=== PATIENT | male | born 1965 | race Caucasian/White ===

== ENCOUNTER 2025-03-27 17:48 | Inpatient (IN) | payer OTHER, BC ==
[~2025-03-27] VITALS: Ht 177.8 cm; Wt 95.6 kg
[~2025-03-27 17:48] MED LIST: ASPI81TA52 PO; CETI-90 GT; ESCI20TA GT; HYDR25TA4 PO; LOSA50TA64 GT; MULT-1085 PO; TADA5TAB14 PO; TEST200V33 IM
--- NOTE | 2025-03-27 18:00 | Physician Documentation ---
History of Present Illness ~ Chief Complaint: Shortness of Breath Stated Complaint: SOB Time Seen by MD: 17:59 HPI Patient presents to the emergency room sent from [facility] with shortness of breath. He states that at about 4:00 p.m. this evening began having coughing fit and things just [place] to the point where he went to the facility to be seen. While at the facility was found to be saturating in the 70s and ambulance was called and gave him a breathing treatment it is beginning to feel better. He states he felt fine yesterday. He arrives with a fever. Denies nausea vomiting diarrhea or constipation. Diarrhea yesterday. No andrei manning. Had a gastric tube placed about a month and a half ago at [place]. He has a history of esophageal cancer and he elected not to have the radical surgical treatment in his considered terminal. With this I asked him his code status and he states limited code but would be okay with intubation. No compressions. Denies chest pain Medication Reconciliation Allergies: Coded Allergies: No Known Drug Allergies (Verified Allergy, Unknown, 03/27/25) Scheduled Amiodarone Hcl (Cordarone), 200 MG GT DAILY, (Reported) Apixaban (Eliquis), 1 TAB GT BID, (Reported) Cetirizine HCl (Zyrtec), 1 TAB GT DAILY, (Reported) Escitalopram Oxalate (Lexapro), 1 TAB GT DAILY, (Reported) Losartan Potassium (Losartan Potassium), 25 MG GT DAILY, (Reported) Metoprolol Tartrate (Metoprolol Tartrate), 1 TAB GT BID, (Reported) Pantoprazole Sodium (PROTONIX tablet), 1 TAB GT BID, (Reported) Sennosides/Docusate Sodium (Senna Plus 8.6-50 mg Tablet), 1 TAB GT BID, (Reported) Scheduled PRN ONDANSETRON ODT 4mg tablet (Ondansetron Odt), 1 TAB GT Q8H PRN for nausea/vomiting, (Reported) Oxycodone Hcl IR* (Oxycodone IR*), 1 TAB GT Q12H PRN PRN for pain, (Reported) Discontinued Medications Aspirin (Aspirin EC), 1 TAB PO DAILY, (Reported) Discontinued Reason: patient no longer taking Hydrochlorothiazide (Hydrochlorothiazide), 1 TAB PO QAM, (Reported) Discontinued Reason: patient no longer taking Multivitamin (Multi Vitamin Daily), 1 TAB PO DAILY, (Reported) Discontinued Reason: patient no longer taking Tadalafil (Tadalafil), 1 TAB PO DAILY, (Reported) Discontinued Reason: patient no longer taking Testosterone Cypionate (TESTOSTERONE CYPIONATE 200mg/ml 10ml vial), 1 ML IM Q2W, (Reported) Discontinued Reason: patient no longer taking Review of Systems ROS All review of systems negative except as per HPI Physical Exam Vital Signs: Temperature: 100.1, Source: Oral, Heart Rate: 117, Respiratory Ra te: 25, BP: 128/90, Pulse Oximetry: 92, Weight: 88.000 Oxygen Flow Rate: 6.0 Physical Exam General: Patient is awake, alert, oriented x4 in severe distress. Diaphoretic Head: Normocephalic and atraumatic. Eyes: Conjunctival normal. EOMI. PERRL. ENT: Mucous membranes moist. Neck: Supple, trachea is midline. Chest: Diffuse coarse rhonchi bilaterally. Tachypneic on non-rebreather Cardiac: Tachycardic regular without murmurs, gallops, or rubs. Abd: Soft, nondistended, nontender, with normoactive bowel sounds. No guarding, rebound, or rigidity. G-tube in place Progress Results/Orders Results/Orders Orders - VENKATESH ISAAC MD Cont Nebulizer Treatment (03/27/25 17:56) Albuterol 2.5mg/3ml Nebule (Proventil 2. (03/27/25 18:00) Culture Blood (03/27/25 17:56) Urinalysis, Cult If Indicated (03/27/25 17:56) Chest,Single View (03/27/25 18:28) Monitor (03/27/25 17:56) Oxygen (03/27/25 17:56) Saline Lock (03/27/25 17:56) Type And Screen (03/27/25 18:06) Cta Chest Pe (03/27/25 18:39) Covid19 Binax Poc Result Entry (03/27/25 19:58) Amiodarone/D5 360mg/200ml Bag (Nexterone (03/27/25 20:05) Norepinephrine 8mg/ 250ml Ns (Norepineph (03/27/25 20:25) High Flow O2 Daily (03/27/25 20:41) Page Hospitalist (03/28/25 00:30) Fill Out Med Reconciliation (03/28/25 00:30) Completed Orders - VENKATESH ISAAC MD Cbc/Diff (03/27/25 17:56) Chest,Single View (03/27/25 18:28) Procalcitonin (03/27/25 17:56) BMP (03/27/25 17:56) Lacticsepsis (03/27/25 17:56) Methylprednisolone Sod Succ (Solumedrol (03/27/25 18:00) PBNP (03/27/25 18:00) Normal Saline 1000ml (0.9% Sodium Chlori (03/27/25 18:00) Azithromycin/Ns 500mg/250ml (Zithromax/N (03/27/25 18:00) Ceftriaxone/B0d-Sgpuwlmj 1gm (Rocephin 1 (03/27/25 18:00) Normal Saline 1000ml (0.9% Sodium Chlori (03/27/25 18:00) Normal Saline 1000ml (0.9% Sodium Chlori (03/27/25 18:00) Acetaminophen 1,000mg/100ml Iv (Ofirmev (03/27/25 18:00) Ceftriaxone/Y4n-Xdiihmwl 1gm (Rocephin 1 (03/27/25 18:15) Cta Chest Pe (03/27/25 18:39) Electrocardiogram (03/27/25 18:51) Diltiazem Iv (Cardizem Iv 5mg/Ml Inj.) (03/27/25 19:00) Iohexol 350mg/Ml 100ml (Omnipaque 350mg/ (03/27/25 19:02) Lidocaine 5% Patch (Lidoderm 5% Patch) (03/27/25 19:55) Amiodarone 150mg/Dext, Iso-Os (Nexterone (03/27/25 20:05) Influenza Type A&B Rapid Test (03/27/25 20:09) Man Diff (03/27/25 18:02) Fentanyl/Pf (Fentanyl 0.05 Mg/Ml Syringe (03/27/25 22:55) Ketorolac Trometh 15mg/Ml Vial (Toradol (03/27/25 22:55) Metronidazole-Flagyl 500mg/Ns (Flagyl 50 (03/27/25 23:57) Medications Received in ER Medications (Trade) Dose Ordered Sig/Justine Route PRN Reason Start Time Stop Time Status Last Admin Dose Admin (Proventil 2.5 MG/3ML nebule) 5 mg Q1H PRN CONTNEB SOB or wheezing 03/27/25 18:00 03/27/25 18:02 5 MG (SoluMEDROL 125mg inj) 125 mg ONCE ONCE IV 03/27/25 18:00 03/27/25 18:02 DC 03/27/25 18:07 125 MG Sodium Chloride 1,000 ml @ 1,000 mls/hr ONCE ONCE IV 03/27/25 18:00 03/27/25 18:59 DC 03/27/25 18:11 1,000 MLS/HR Azithromycin 250 ml @ 250 mls/hr ONCE ONCE IV 03/27/25 18:00 03/27/25 18:59 DC 03/27/25 18:28 250 MLS/HR (0.9% sodium chloride (NS) 1000ml IV soln) 500 ml ONCE ONCE IVB 03/27/25 18:00 03/27/25 18:02 DC 03/27/25 19:40 500 ML (0.9% sodium chloride (NS) 1000ml IV soln) 1,000 ml ONCE ONCE IVB 03/27/25 18:00 03/27/25 18:05 DC 03/27/25 19:01 1,000 ML Acetaminophen 100 ml @ 400 mls/hr ONCE ONCE IV 03/27/25 18:00 03/27/25 18:14 DC 03/27/25 18:11 400 MLS/HR Ceftriaxone Sodium 50 ml @ 100 mls/hr ONCE ONCE IV 03/27/25 18:15 03/27/25 18:44 DC 03/27/25 18:20 100 MLS/HR (Cardizem IV 5mg/ ml inj.) 15 mg ONCE ONCE IV 03/27/25 19:00 03/27/25 19:01 DC 03/27/25 19:08 15 MG (Lidoderm 5% Patch) 1 patch ONCE ONCE TP 03/27/25 19:55 03/27/25 19:56 DC 03/27/25 19:55 1 PATCH Amiodarone HCL/ Dextrose 100 ml @ 600 mls/hr ONCE ONCE IV 03/27/25 20:05 03/27/25 20:18 DC 03/27/25 20:50 600 MLS/HR Amiodarone HCL/ Dextrose 200 ml @ 33 mls/hr Q6H4M IV 03/27/25 20:05 03/27/25 21:13 33 MLS/HR Norepinephrine Bitartrate 250 ml @ 16.5 mls/hr [id number] IV 03/27/25 20:25 03/27/25 20:29 16.5 MLS/HR (fentaNYL 0.05 MG/ML syringe) 50 mcg ONCE ONCE IV 03/27/25 22:55 03/27/25 22:56 DC 03/27/25 23:10 50 MCG (Toradol injection) 15 mg ONCE ONCE IV 03/27/25 22:55 03/27/25 22:58 DC 03/27/25 23:10 15 MG Metronidazole/ Sodium Chloride 100 ml @ 100 mls/hr ONCE STAT IV 03/27/25 23:57 03/28/25 00:56 DC 03/28/25 00:06 100 MLS/HR Vital Signs 03/27/25 03/27/25 03/27/25 03/27/25 17:54 17:58 18:01 18:03 Temp 100.1 Pulse 117 119 116 Resp B/P (MAP) 128/90 154/71 (98) Pulse Ox 88 92 92 93 O2 Delivery Non-Rebreather O2 Flow Rate 6.0 10 12.0 FiO2 N/A 03/27/25 03/27/25 03/27/25 03/27/25 18:03 18:24 18:32 18:36 Pulse 110 108 Resp B/P (MAP) 126/70 (88) 113/63 (80) Pulse Ox 93 94 O2 Flow Rate 8.0 8.0 8.0 03/27/25 03/27/25 03/27/25 03/27/25 18:52 18:57 19:08 19:19 Pulse 145 163 160 156 Resp B/P (MAP) 135/60 (85) 123/72 94/58 (70) Pulse Ox 93 94 87 O2 Flow Rate 15.0 15.0 03/27/25 03/27/25 03/27/25 03/27/25 19:26 19:32 19:47 20:08 Pulse 142 141 143 138 Resp B/P (MAP) 91/50 (64) 88/52 (64) 95/56 (69) 97/57 (70) Pulse Ox 93 92 94 89 O2 Flow Rate 15.0 15.0 15.0 15.0 03/27/25 03/27/25 03/27/25 03/27/25 20:19 20:29 20:40 20:48 Temp 98.5 Pulse 153 130 128 Resp B/P (MAP) 82/49 (60) 82/49 95/62 (73) 103/68 (80) Pulse Ox 90 90 92 O2 Flow Rate 15.0 15.0 25.0 FiO2 100 03/27/25 03/27/25 03/27/25 03/27/25 20:51 21:11 21:18 21:40 Pulse 129 130 122 114 Resp B/P (MAP) 113/71 (85) 99/69 (79) 107/59 (75) Pulse Ox 90 97 95 95 O2 Flow Rate 30.0 30.0 30.0 30.0 FiO2 100 100 100 03/27/25 03/27/25 03/27/25 03/27/25 22:46 22:52 23:10 23:10 Pulse 128 Resp 22 21 20 B/P (MAP) 113/76 (88) 112/79 Pulse Ox 94 O2 Flow Rate 30.0 FiO2 100 03/27/25 03/27/25 03/27/25 03/28/25 23:14 23:58 23:59 00:39 Pulse 125 120 Resp 24 22 B/P (MAP) 126/73 109/71 (84) 115/66 (82) Pulse Ox 97 98 O2 Flow Rate 30.0 30.0 FiO2 100 100 Laboratory Tests Test 03/27/25 18:02 03/27/25 20:11 White Blood Count 25.2 *H Red Blood Count 4.16 L Hemoglobin 11.9 L Hematocrit 36.1 L Mean Corpuscular Volume 86.7 Mean Corpuscular Hemoglobin 28.6 Mean Corpuscular Hemoglobin Concent 33.0 Red Cell Distribution Width 17.0 H Platelet Count 510 H Mean Platelet Volume 7.1 L Neutrophils (%) (Auto) 93.4 H Lymphocytes (%) (Auto) 2.4 L Monocytes (%) (Auto) 3.5 Eosinophils (%) (Auto) 0 Basophils (%) (Auto) 0.7 Neutrophils # (Auto) 23.5 H Lymphocytes # (Auto) 0.6 L Monocytes # (Auto) 0.9 Eosinophils # (Auto) 0.0 Basophils # (Auto) 0.2 CBC Comment Differential Total Cells Counted 100 Neutrophils % (Manual) 94.0 H Band Neutrophils % 2.0 Lymphocytes % (Manual) 2.0 L Monocytes % (Manual) 2.0 Platelet Estimate Normal Red Blood Cell Morphology Perf Basophilic Stippling Anisocytosis 2+ Sodium Level 138 Potassium Level 4.2 Chloride Level 100 Carbon Dioxide Level 31.4 Anion Gap 7 L Blood Urea Nitrogen 19 H Creatinine 0.71 Estimated GFR/1.73 m2 > 90 BUN/Creatinine Ratio 26.8 H Glucose Level 132 H Lactic Acid Level 1.5 Calcium Level 8.8 Pro-B-Type Natriuretic Peptide 307 H Albumin 2.3 L Procalcitonin < 0.05 Chemistry Comments Influenza Type A Antigen Negative Influenza Type B Antigen Negative SARS-CoV-2 Antigen (Rapid) Negative Microbiology Date/Time Source Procedure Growth Status 03/27/25 18:13 Blood Iv Start Blood Culture - Preliminary NEGATIVE (LESS THAN 24 HOURS) Resulted EKG/XRAY/CT/US/VASC/MRI EKG : Additional Comment EKG interpreted by myself shows time of 1854, rate 149, AFib RVR, borderline left axis deviation, nonspecific ST-T changes Chest X-Ray : Additional Comments Exam: CHEST,SINGLE VIEW CHEST RADIOGRAPH REASON FOR EXAM: RESPIRATORY DISTRESS COMPARISON: None TECHNIQUE: One view of the chest is provided FINDINGS: Evaluation is degraded by patient rotation. The cardiomediastinal silhouette is within normal limits for size. There is a right chest port with the catheter tip projecting over the area of the cavoatrial junction. There is right basilar airspace disease. There is no significant pleural effusion. There is no pneumothorax. Old healed fracture of the left 8th rib. IMPRESSION: Right basilar airspace disease concerning for pneumonia. Correlate clinically with physical exam. Medical Decision Making Additional information obtaine: N/A Findings Patient presents to the emergency room for evaluation of shortness of breath and severe respiratory distress. Differentials include but are not limited to pneumonia, ACS, pulmonary embolism, CHF therefore emergent labs and imaging indicated. Workup consistent with pneumonia and IV antibiotics and 30 milliliters/kilogram of IV fluids ordered. Patient hypotensive requiring Levophed. Also noted to have AFib RVR and he had not tolerate diltiazem therefore amiodarone drip initiated. Blood pressure improved and we are able to wean him off of Levophed. Heart Score: 3 Differential Dx:Considerations: Include: anxiety, asthma, bronchitis, cardiogenic shock, CHF, COPD, dysrhythmia, hypertension, accelerated, hypertension, essential, hypertension, malignant, hyperventilation, hyponatremia, myocardial infarction, panic attack, pneumonia, pneumonitis, pneumothorax, PSVT, pulmonary embolism, respiratory distress, respiratory failure, sinusitis, upper resp. infection, other Departure Admitted to Inpatient Unit: yes, to hospitalist Impression: Primary Impression: Pneumonia Additional Impressions: Hypoxia Atrial fibrillation with RVR Referrals: NO PRIMARY CARE PROVIDER (PCP) Critical Care Note Total Time (mins): 45 Critical Care Note The very real possibility of a deterioration of this patient's condition required the highest level of my preparedness for sudden, emergent intervention. I provided critical care services, which included medication orders, frequent reevaluations of the patient's condition and response to treatment, ordering and reviewing test results, and discussing the case with various consultants. Excludes time spent performing separately billable procedures. The critical care time associated with the care of the patient was 45 minutes not counting procedures Signature Scribe Signature: No scribe Attestation: The note accurately reflects work and decisions made by me.Venkatesh Isaac MD 03/28/25 01:18 VENKATESH ISAAC MD Mar 27, 2025 18:00
[2025-03-27] MEDS: albuterol 2.5 MG/3 ML nebule CONTNEB PRN (18:02)
[2025-03-27 18:03] VITALS: PULSE 116; RESP 28; O2SAT 93
[2025-03-27] MEDS: acetaminophen 1,000mg/100ml IV 100 ML IV ONE (18:11)
[2025-03-27] MEDS: normal saline 1000ml 1,000 ML IV ONE (18:11)
[2025-03-27] MEDS: CefTRIAXone/D5W-Rocephin 1gm 50 ML IV ONE ×2 (18:12→18:20)
[2025-03-27 18:13] LABS: MEAN PLATELET VOLUME 7.1 FL (7.4-10.4); RED CELL DISTRIBUTION WIDTH 17.0 % (11.5-14.5)
[2025-03-27] MEDS: azithromycin/NS 500mg/250ml 250 ML IV ONE (18:28)
[2025-03-27 18:33] LABS: CREATININE 0.71 MG/DL (0.60-1.10); PRO BRAIN NATRIURETIC PEPTIDE 307 PG/ML (0-125); TOTAL CARBON DIOXIDE 31.4 MMOL/L (24-32); eCRCL 116 ML/MIN; eGFR > 90 ML/MIN
--- NOTE | 2025-03-27 18:41 | RADIOLOGY REPORT ---
CHEST RADIOGRAPH REASON FOR EXAM: RESPIRATORY DISTRESS COMPARISON: None TECHNIQUE: One view of the chest is provided FINDINGS: Evaluation is degraded by patient rotation. The cardiomediastinal silhouette is within normal limits for size. There is a right chest port with the catheter tip projecting over the area of the cavoatrial junction. There is right basilar airspace disease. There is no significant pleural effusion. There is no pneumothorax. Old healed fracture of the left 8th rib. IMPRESSION: Right basilar airspace disease concerning for pneumonia. Correlate clinically with physical exam.
[2025-03-27 18:52] VITALS: PULSE 145; RESP 24; O2SAT 93
--- NOTE | 2025-03-27 18:58 | ELECTROCARDIOGRAPH REPORT ---
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
[2025-03-27] MEDS: normal saline 1000ML IV soln IVB ONE ×2 (19:01→19:40)
[2025-03-27] MEDS: diltiazem 5mg/ml 5ml inj. IV ONE (19:08)
[2025-03-27] MEDS ORDERED: PANT-47 GT (19:44)
[2025-03-27] MEDS ORDERED: ONDA-243 GT (19:44)
[2025-03-27] MEDS ORDERED: AMIO200T76 GT (19:44)
[2025-03-27] MEDS ORDERED: SENN-302 GT (19:44)
[2025-03-27] MEDS ORDERED: METO25TA6 GT (19:44)
[2025-03-27] MEDS ORDERED: APIX5TAB3 GT (19:44)
[2025-03-27] MEDS ORDERED: OXYC-658 GT (19:44)
[2025-03-27] MEDS: NORepinephrine 8mg/ 250ml NS 250 ML IV SCH (20:29)
[2025-03-27 20:35] LABS: INFLUENZA TYPE A ANTIGEN RAPID NEGATIVE (Negative); INFLUENZA TYPE B ANTIGEN RAPID NEGATIVE (Negative)
[2025-03-27 20:43] LABS: BANDS% (MANUAL) 2.0 % (0-10); LYMPHOCYTES % (MANUAL) 2.0 % (21-51); MONOCYTES % (MANUAL) 2.0 % (2-12); NEUTROPHILS % (MANUAL) 94.0 % (42-75)
[2025-03-27 20:44] LABS: PLATELET ESTIMATE NORMAL
[2025-03-27] MEDS: amiodarone 150mg/dext, iso-os 100 ML IV ONE (20:50)
[2025-03-27 20:51] VITALS: PULSE 129; RESP 24; O2SAT 90
[2025-03-27] MEDS: amiodarone/D5 360MG/200ML BAG 200 ML IV SCH (21:13)
--- NOTE | 2025-03-27 23:02 | RADIOLOGY REPORT ---
CTA Chest with intravenous contrast INDICATION: sob COMPARISON: Same day chest radiograph TECHNIQUE: Multidetector spiral CTA of the chest was performed of the chest with intravenous contrast. PULMONARY ANGIOGRAPHY PROTOCOL was utilized using a bolus- tracking technique centered on the main pulmonary artery. Axial, coronal and sagittal multiplanar and MIP reformats were performed. Radiation Dose : 1. Chest: CTDI volume is 24 mGy. Dose-length product is 1067 mGy*cm The dose indicators for CT are the volume Computed Tomography (CT) Dose Index (CTDIvol) and the Dose Length Product (DLP), and are measured in units of mGy and mGy-cm, respectively. These indicators are not patient dose, but values generated from the CT scanner acquisition factors. The report includes radiation exposure data for exposures received during this examination. Findings: Pulmonary arteries: Technical factors adequate for assessment of the level of the mid sacrum segmental arteries. No visualized filling defect. Central arteries are normal in caliber. Lower neck: Right IJ chest port terminating in the mid SVC. Lungs: Dense consolidation the right lower lobe, lesser within the right middle lobe, with additional nodular and ground-glass foci in the right upper greater than left upper and lower lobes. Significant, near complete obstruction of right airways with debris. Right apical greater than bilateral basilar interlobular septal thickening. Pleura: Trace right pleural effusion. Mediastinum: Normal heart size. No pericardial effusion. Dilated proximal esophagus with circumferential irregular wall thickening of the mid to distal segment with prominent debris. Lymph Nodes: Bilateral hilar adenopathy suspected. Musculoskeletal: No acute osseous abnormality. Soft tissues: Unremarkable. Upper abdomen: No acute abnormality. Left renal cysts. IMPRESSION: 1. No pulmonary embolism to the level of the mid subsegmental arteries. 2. Multifocal airspace disease involving all lobes, worse in the tmwyx-yquoavu-xsey-left lobe. Extensive right lung aspiration is present. Trace right pleural effusion. Aspiration and superimposed infection are likely. Consider bronchoscopy. 3. Irregular masslike wall thickening of the mid to distal esophagus with large volume of intraluminal debris. Consider endoscopy. 4. Bilateral hilar lymph nodes may be reactive or metastatic, correlate with procedure results.
[2025-03-27] MEDS: fentaNYL/PF 50MCG/1 ML 2ML syringe IV ONE (23:10)
[2025-03-27] MEDS: ketorolac trometh 15mg/ml vial 15 MG/ML ML IV ONE (23:10)
[2025-03-28] VITALS (21 sets, daily range): BP systolic 90–114; BP diastolic 67–82; PULSE 67–124; RESP 14–26; TEMP 97.2–97.5; O2SAT 90–100
[2025-03-28] MEDS: metroNIDAZOLE-Flagyl 500mg/NS 100 ML IV STA (00:06)
[2025-03-28] MEDS ORDERED: magnesium sulf-water 2g/50mL 50 ML IV PRN (00:40)
[2025-03-28] MEDS ORDERED: magnesium sulf-water 4G/100mL 100 ML IV PRN (00:40)
[2025-03-28] MEDS ORDERED: magnesium hydroxide 30ml (MOM) UD suspension PO PRN (00:40)
[2025-03-28] MEDS ORDERED: potassium Cl 20 mEq SR tablet PO PRN ×2 (00:40)
[2025-03-28] MEDS ORDERED: magnesium Cl slow-release 64mg tablet PO PRN (00:40)
[2025-03-28] MEDS ORDERED: albuterol 2.5 MG/3 ML nebule NEB PRN (00:40)
[2025-03-28] MEDS ORDERED: mag hydrox/Alum hydrox/simeth 30ml oral suspension PO PRN (00:40)
[2025-03-28] MEDS ORDERED: HYDROmorphone/PF 0.2 MG/ML SYRINGE IV PRN ×2 (00:40→13:35)
[2025-03-28] MEDS ORDERED: potassium Cl 40MEQ/1/2NS 520ml 520 ML IV PRN (00:40)
[2025-03-28] MEDS ORDERED: bisacodyl 10mg suppository rectal RC PRN (00:40)
[2025-03-28 01:34] LABS: APTT 31 SECONDS (22-32); INR 1.4 INR
[2025-03-28 01:42] LABS: ABG BASE EXCESS 0.8 mmol/L (-2.0-3.0); ABG HCO3 24.7 mmol/L (21.0-28.0); ABG OXYGEN SATURATION 98.6 % (94.0-98.0); ABG PCO2 (T) 36.8 mmHg (35.0-48.0); ABG PH (T) 7.443 (7.350-7.450); ABG PO2 (T) 107.3 mmHg (83.0-108.0); ALLEN'S TEST POSITIVE; FCOHb 0.5 % (0.5-1.5); FHHb 1.4 % (0.0-5.0); FIO2 100.0 mmHg/%; FLOW 30 L/min; FMetHb 0.0 % (0.0-1.5); FO2Hb 98.1 % (94.0-98.0); MODE HIGH FLOW; PATIENT TEMPERATURE 36.9; TOTAL HEMOGLOBIN 12.2 G/dl (13.5-17.5)
--- NOTE | 2025-03-28 01:42 | HISTORY AND PHYSICAL-Residence ---
History & Physical Providers to CC Resident Creating Document: JARED LOYOLA, RES ~ History of Present Illness Reason for Admit\Complaint: Aspiration pneumonia, shortness of breath History of Present Illness This is a 59-year-old male with a history of stage IV esophageal cancer s/p G- tube placement, hypertension, atrial fibrillation, obstructive sleep apnea was brought to the ER by EMS with a chief complaint of cough with hemoptysis since 4:00 p.m. yesterday. Patient states that his cough that started spontaneously and lasted for 1 hour after which he had two mouthfulls of bright red blood and shortness of breath. Patient endorses that he can not swallow anything due to the esophageal cancer and has a complete obstruction in the esophagus. He usually takes his feeds through G-tube. The patient endorses having thick mucus every morning in his throat and states that he might have aspirated some of the mucus multiple times. Patient also wears a BiPAP at night for obstructive sleep apnea management and has copious mucus secretions every morning when he wakes up. He also states that his esophageal cancer is compressing his right atrium that causes persistent AFib despite being on medications. He takes Eliquis 5 mg b.i.d. for anticoagulation. He does not use any oxygen at home. He takes about four cartons of G-tube feeds every day. Each carton is 250 mL. He also flushes 100 mL of free water every 4 hours through the G-tube but feels almost dehydrated all the time. He drinks small sips of water which he sometimes aspirates. Patient follows [facility] and finished eight cycles of chemotherapy and 28 cycles of concomitant radiation over a period of two months. He was under remission for three months after which the cancer recurred. Britni is his PA and Dr. Emma Ruiz is his director of individual giving. Patient was offered palliative esophageal resection surgery but he declined it. Patient is in the process of pursuing hospice and endorses that hospice is ready for him to whenever he wants to opt for hospice. Patient has a advance directive which states DNR. Patient has a PET scan coming up in two weeks. ED course: His cough was associated with severe diaphoresis, nausea and his saturations were dropping to 70s and he was placed on high-flow oxygen through nasal cannula in the ER. Allergies: Coded Allergies: No Known Drug Allergies (Verified Allergy, Unknown, 03/27/25) Home Medications Home Medications Active Reported Cordarone (Amiodarone HCl) 200 Mg Tablet 200 Mg GT DAILY Senna Plus 8.6-50 mg Tablet (Sennosides/Docusate Sodium) 8.6 Mg-50 Mg Tablet 1 Tab GT BID 20 Days PROTONIX tablet (Pantoprazole Sodium) 40 Mg Tablet.dr 1 Tab GT BID 30 Days Oxycodone IR* (Oxycodone HCl) 5 Mg Tablet 1 Tab GT Q12H PRN PRN 5 Days Ondansetron Odt (Ondansetron HCl) 4 Mg Tab.rapdis 1 Tab GT Q8H PRN 4 Days Metoprolol Tartrate 25 Mg Tablet 1 Tab GT BID 30 Days Eliquis (Apixaban) 5 Mg Tablet 1 Tab GT BID 30 Days Lexapro (Escitalopram Oxalate) 20 Mg Tablet 1 Tab GT DAILY 30 Days Zyrtec (Cetirizine HCl) 10 Mg Tablet 1 Tab GT DAILY 30 Days Losartan Potassium 50 Mg Tablet 25 Mg GT DAILY Past Medical History Past Medical History stage IV esophageal cancer s/p G-tube placement, hypertension, atrial fibrillation, obstructive sleep apnea Past Surgical History Surgical History Comment Appendicectomy, nasal surgery, orthopedic surgeries Family history: Prostate cancer in father and ovarian/cervical cancer in mother Past Social History Social History Comment Smoked about 1-2 cigarettes per day for 10 years, occasional social drinking, no drug use ROS ROS Constitutional: Nausea, diaphoresis present. No fever, chills, dizziness, weakness, weight gain or loss Eyes: No pain, erythema, discharge, blurring of vision ENT: No sore throat, epistaxis, tinnitus, but copious mucus secretion Cardiovascular: Positive for palpitations, no syncope, lower extremity edema, paroxysmal nocturnal dyspnea Respiratory: hemoptysis, cough Gastrointestinal: Normal appetite. No vomiting, diarrhea, constipation, hematemesis, abdominal pain, bloating, melena or fresh blood Genitourinary: No frequency, urgency, nocturia, hematuria or dysuria Musculoskeletal: No arthralgias or myalgias Integumentary: No change in skin, hair, nails. No swelling, bruising, abrasions Neurologic: No headache, neck pain, numbness or tingling of the extremities, weakness Psychiatric: No delusions, depression, loss of interest in normal activity or change in sleep pattern, hallucinations, suicidal ideations Endocrine: No fatigue, weakness, polydipsia, polyuria, change in appetite, heat or cold intolerance, sweating, dry skin Hematological: No bleeding, petechiae, bruising Allergies: No asthma or urticaria Exam Vitals: Vital Signs Date Time Temp Pulse Resp B/P (MAP) Pulse Ox O2 Delivery O2 Flow Rate FiO2 03/28/25 00:39 120 22 115/66 (82) 98 30.0 100 03/27/25 20:48 98.5 03/27/25 17:58 Non-Rebreather General: General: Awake and Alert, oriented no acute distress. G-tube in place HEENT: Conjunctiva pink, Sclera clear, Mucus Membranes dry Neck: Supple without masses and tenderness. Resp: Decreased breath sounds bilaterally, crepitations right greater than left, no wheezing Heart: irregular rate and rhythm, normal S1 and S2, no rub, murmur or gallop, muffled heart sounds. Abdomen: Soft and non tender no organomegaly. Normal bowel sounds x4 quadrant normoactive. No guarding or rigidity. Extremities: Normal ROM, no swelling, nontender. No cyanosis,clubbing,1+ edema. DRAWER UPFITTER: No gross motor or sensory abnormalities. Skin: Warm and Dry. Diagnostic Data Last Recorded Lab Results: 03/27/25180103/27/251801 Diagnostic Data: Laboratory Tests Test 03/28/25 00:55 Prothrombin Time 13.5 SECONDS (9.0-12.0) H INR International Normalized Ratio 1.4 INR Activated Partial Thromboplast Time 31 SECONDS (22-32) Coagulation Comments Advance Care Planning Advanced Care plannin - 30 Minutes (I spent a total of 17 minutes on reviewing various resuscitative measures/ ACP with the patient at the time of admission. The patient has decided on a DNR code status) Additional Plan Acute hypoxemic respiratory failure secondary to aspiration pneumonia 2/2 mucus plugs Septic shock secondary to aspiration pneumonia, present on admission Leukocytosis, Reactive thrombocytosis WBC count 25.2, temperature 100.1 at admission. Patient had initial blood pressure in 80s and respiratory rate in the 30s and pulse in 140s and 150s Patient was initially given Levophed and 2.5 L bolus of IV fluids. Levophed was later discontinued after blood pressures improved. Patient also received one dose of IV fentanyl 50 mcg, ketorolac 15 mg, lidocaine patch, one dose of ceftriaxone, metronidazole and azithromycin in the ED. Currently on IV vancomycin daily, Zosyn Q 8 hours. Currently on maintenance fluids NS at the rate of 100 mL/hour. Patient was initially on 30 L high-flow oxygen nasal cannula which is now weaned off to 15 L high-flow through nasal cannula. Patient received Solu-Medrol 125 mg IV once followed by Solu-Medrol 40 mg q.6 hours scheduled. UA is pending. Lactic acid and procalcitonin are within normal limits. Follow up with blood cultures and urine cultures, CRP. Chest x-ray showed Right basilar airspace disease concerning for pneumonia. CTA abdomen ruled out PE but showed Multifocal airspace disease involving all lobes, worse in the jfmur-btfnucq-qrqd-left lobe. Extensive right lung aspiration is present. Trace right pleural effusion. Aspiration and superimposed infection are likely. Consider bronchoscopy. Consult node js developer in the a.m. for possible bronchoscopy to relieve mucus plugs. Continue aspiration precautions and incentive spirometry. Patient is currently on breathing treatments with albuterol q.2h p.r.n. and DuoNebs q.4 PRN. Atrial fibrillation with RVR Patient initially received 15 mg IV push of Cardizem that was later discontinued due to hypotension. Patient is currently on amiodarone drip. Heart rate is still in the high 110s despite being on amiodarone drip. Consult Cardiology in the a.m. patient is currently on Eliquis 5 mg b.i.d. for anticoagulation. Follow up with the echocardiogram Stage IV esophageal cancer CT shows Irregular masslike wall thickening of the mid to distal esophagus with large volume of intraluminal debris. Consider endoscopy. Bilateral hilar lymph nodes may be reactive or metastatic. Normocytic normochromic anemia Anemia of chronic disease secondary to malignancy Hemoglobin 11.9. Continue monitoring. Follow up with iron studies and supplement iron as needed. No signs of GI bleed Moderate protein calorie malnutrition. Albumin 2.3. Consult nutrition for G-tube feeds Code Status: DNR DVT Prophylaxis: Lovenox Analgesia/Sedation: [place], morphine p.r.n. Lines/Tubes: PIV Gi Prophylaxis: Protonix Nutrition: G-tube feeds per nutrition recommendation PT: Yes Prognosis: Guarded Disposition: Admit to PCU with telemetry monitoring Jared Nogueira MD Internal Medicine Resident PGY-2 Patient was assessed and case discussed with resident. I agree with the H&P and assessment and plan as above, with no change. Britney Disla MD Critical Care Date of Service: Mar 28, 2025 Billing Provider: BRITNEY DISLA MD, DEEPIKA BANDI, RES Mar 28, 2025 01:42 BRITNEY DISLA MD Mar 29, 2025 18:58
[2025-03-28] MEDS: normal saline 1000ml 1,000 ML IV ONE (02:01)
[2025-03-28] MEDS: normal saline 1000ml 1,000 ML IV SCH (02:01)
[2025-03-28] MEDS: methylPREDNISolone sod succ/PF 40mg inj. IV SCH ×2 (02:02→17:12)
[2025-03-28] MEDS: piperacillin/tazo 3.375gm/50 ML IV ONE (02:02)
[2025-03-28] MEDS: ipratropium/albuterol 3ml nebule NEB PRN (02:29)
[2025-03-28] MEDS: vancomycin/NS 1 GM ADD-VANTAGE 250 ML X 1 DOSE IV SCH (02:35)
[2025-03-28] MEDS ORDERED: mag hydrox/Alum hydrox/simeth 30ml oral suspension GT PRN (03:18)
[2025-03-28] MEDS ORDERED: magnesium hydroxide 30ml (MOM) UD suspension GT PRN (03:18)
[2025-03-28] MEDS ORDERED: acetaminophen 325mg/10.15ml oral unit dose solution GT PRN ×2 (03:20)
[2025-03-28] MEDS ORDERED: acetaminophen 325mg/10.15ml oral unit dose solution PO PRN (03:20)
[2025-03-28] MEDS: piperacillin/tazo 3.375gm/50ml 50 ML IV SCH (05:25)
[2025-03-28] MEDS: piperacillin/tazo 3.375gm/50ml 50 ML IV ONE (06:03)
[2025-03-28 07:50] LABS: % IRON SATURATION 9 % (11-46)
[2025-03-28] MEDS: K and/or MAG REPLACEMENT MC SCH (08:00)
[2025-03-28] MEDS: docusate sodium 100mg/10ml UD cup GT SCH (08:05)
[2025-03-28] MEDS: enoxaparin 40mg/0.4ml syringe SUBCUT SCH (08:06)
[2025-03-28] MEDS: vancomycin/NS 1 GM ADD-VANTAGE 250 ML IV SCH (11:25)
[2025-03-28] MEDS: HYDROmorphone inj. 0.5 MG/0.5 ML DISP.SYRIN IV PRN ×2 (12:16→21:13)
[2025-03-28] MEDS ORDERED: POTASSIUM CHLORIDE 20 MEQ/15 ML oral solution GT PRN ×2 (16:10→16:11)
[2025-03-28 20:30] LABS: MEAN PLATELET VOLUME 7.8 FL (7.4-10.4); RED CELL DISTRIBUTION WIDTH 17.0 % (11.5-14.5)
[2025-03-28 20:48] LABS: CREATININE 0.61 MG/DL (0.60-1.10); TOTAL CARBON DIOXIDE 28.3 MMOL/L (24-32); eCRCL 135 ML/MIN; eGFR > 90 ML/MIN
[2025-03-29] VITALS (22 sets, daily range): BP systolic 91–124; BP diastolic 66–84; PULSE 60–136; RESP 12–30; TEMP 96.9–98.8; O2SAT 92–99
[2025-03-29] MEDS: insulin regular, human U-100 10ml vial - multi-dose SQ SCH (02:00)
[2025-03-29] MEDS ORDERED: insulin regular, human U-100 10ml vial - multi-dose SQ SCH (02:00)
[2025-03-29] MEDS: VANCOMYCIN LEVEL IV ONE (02:30)
[2025-03-29 04:25] LABS: MEAN PLATELET VOLUME 7.2 FL (7.4-10.4); RED CELL DISTRIBUTION WIDTH 16.6 % (11.5-14.5)
[2025-03-29 04:46] LABS: CREATININE 0.63 MG/DL (0.60-1.10); TOTAL CARBON DIOXIDE 28.6 MMOL/L (24-32); eCRCL 130 ML/MIN; eGFR > 90 ML/MIN
[2025-03-29] MEDS: albuterol 2.5 MG/3 ML nebule NEB PRN (07:49)
--- NOTE | 2025-03-29 10:13 | PROGRESS NOTE- Residence ---
Progress Note - Resident Providers to CC Resident Creating Document: ANA PATTERSON RES ~ Antibiotic Timeout Antibiotic Ordered?: Yes Subjective Patient is seen in PCU, still requiring high-flow oxygen. We will repeat ABG and continue respiratory therapy for aspiration pneumonia Objective Vital Signs Date Time Temp Pulse Resp B/P (MAP) Pulse Ox O2 Delivery O2 Flow Rate FiO2 03/29/25 07:52 101 20 93 25.0 50 03/29/25 07:50 High Flow Nasal Cannula 03/29/25 06:00 97.6 109/73 (85) Result Diagram: 03/29/2541903/29/25419 General: Awake and Alert, oriented no acute distress. G-tube in place HEENT: Conjunctiva pink, Sclera clear, Mucus Membranes dry Neck: Supple without masses and tenderness. Resp: no wheezing Heart: irregular rate and rhythm, normal S1 and S2, no rub, murmur or gallop, muffled heart sounds. Abdomen: Soft and non tender no organomegaly. Normal bowel sounds x4 quadrant normoactive. No guarding or rigidity. Extremities: Normal ROM, no swelling, nontender. No cyanosis,clubbing,1+ edema. 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 Skin: Warm and Dry. Coagulation Studies Laboratory Tests Test 03/28/25 00:55 Prothrombin Time 13.5 SECONDS (9.0-12.0) H INR International Normalized Ratio 1.4 INR Activated Partial Thromboplast Time 31 SECONDS (22-32) Coagulation Comments Plan Plan Acute hypoxemic respiratory failure secondary to aspiration pneumonia 2/2 mucus plugs Septic shock secondary to aspiration pneumonia Leukocytosis, Reactive thrombocytosis WBC count 25.2, temperature 100.1 at admission. Patient had initial blood pressure in 80s and respiratory rate in the 30s and pulse in 140s and 150s Patient was initially given Levophed and 2.5 L bolus of IV fluids. Levophed was later discontinued after blood pressures improved. Patient also received one dose of IV fentanyl 50 mcg, ketorolac 15 mg, lidocaine patch, one dose of ceftriaxone, metronidazole and azithromycin in the ED. Currently on IV vancomycin daily, Zosyn Q 8 hours. Currently on maintenance fluids NS at the rate of 100 mL/hour. Patient was initially on 30 L high-flow oxygen nasal cannula which is now weaned off to 15 L high-flow through nasal cannula. Patient received Solu-Medrol 125 mg IV once followed by Solu-Medrol 40 mg q.6 hours scheduled. UA is pending. Lactic acid and procalcitonin are within normal limits. Follow up with blood cultures and urine cultures, CRP. Chest x-ray showed Right basilar airspace disease concerning for pneumonia. CTA abdomen ruled out PE but showed Multifocal airspace disease involving all lobes, worse in the ucjtd-cqjiiyu-vibm-left lobe. Extensive right lung aspiration is present. Trace right pleural effusion. Aspiration and superimposed infection are likely. Consider bronchoscopy. Consult scratcher tender in the a.m. for possible bronchoscopy to relieve mucus plugs. Continue aspiration precautions and incentive spirometry. Patient is currently on breathing treatments with albuterol q.2h p.r.n. and DuoNebs q.4 PRN. 03/29- Patient's WBC count trending down Thrombocytosis resolved Patient still having tachycardia, blood pressure improving Patient currently requiring 25 L high-flow oxygen through nasal cannula Patient on maintenance fluids NS 50 cc/hour Patient on Solu-Medrol 40 mg, albuterol p.r.n. Currently on vancomycin, Zosyn discontinued, awaiting blood cultures. Atrial fibrillation with RVR Patient initially received 15 mg IV push of Cardizem that was later discontinued due to hypotension. Patient is currently on amiodarone drip. Heart rate is still in the high 110s despite being on amiodarone drip. Consult Cardiology in the a.m. patient is currently on Eliquis 5 mg b.i.d. for anticoagulation. Follow up with the echocardiogram 03/29- Patient currently in AFib with RVR. Patient is still tachycardic Patient currently on amiodarone drip Patient on telemetry, we will continue to monitor him. Stage IV esophageal cancer CT shows Irregular masslike wall thickening of the mid to distal esophagus with large volume of intraluminal debris. Consider endoscopy. Bilateral hilar lymph nodes may be reactive or metastatic. 03/29- Patient has not seen any oncology doctor in over 3 months. To follow up with Oncology outpatient. Normocytic normochromic anemia Anemia of chronic disease secondary to malignancy Hemoglobin 11.9. Continue monitoring. Follow up with iron studies and supplement iron as needed. No signs of GI bleed 03/29- Hemoglobin decreased to 11.1. Likely due to hemodilution Iron study showed decreased iron of 11, MCV 87.3, ferritin 356, TIBC 122 with% saturation of 9 We will continue to monitor his hemoglobin level. Moderate protein calorie malnutrition. Albumin 2.3. Consult nutrition for G-tube feeds Code Status: DNR DVT Prophylaxis: Lovenox Analgesia/Sedation: [place], morphine p.r.n. Lines/Tubes: PIV Gi Prophylaxis: Protonix Nutrition: G-tube feeds per nutrition recommendation PT: Yes Prognosis: Guarded DISPOSITION- patient is improving. We will continue to monitor him. Ana Patterson PGY-1 Date of Service: Mar 29, 2025 Billing Provider: NITHYA HOLGUIN MD Common Visit Codes: [id number] INP/OBS CARE(HIGH) ANA PATTERSON, RES Mar 29, 2025 10:13 NITHYA HOLGUIN MD Mar 29, 2025 21:07
[2025-03-29] MEDS ORDERED: amiodarone/D5 360MG/200ML BAG 200 ML IV SCH (11:35)
--- NOTE | 2025-03-29 11:35 | ELECTROCARDIOGRAPH REPORT ---
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 LOVELY Butler Measurements Intervals [place] Rate: 126 P: 0 MS: 0 QRS: -24 QRSD: 87 T: 111 QT: 342 QTc: 496 Interpretive Statements Atrial fibrillation Ventricular premature complex Borderline left axis deviation Borderline low voltage, extremity leads Nonspecific T abnormalities, lateral leads Prolonged QT interval Baseline wander in lead(s) V3 Electronically Signed On 03-29-2025 18:20:[address] LOVELY Butler Please click the below link to view image of tracing.
[2025-03-29] MEDS ORDERED: amiodarone/D5 450MG/250ML BAG 250 ML IV SCH (11:58)
[2025-03-29] MEDS: amiodarone/D5 450MG/250ML BAG 250 ML IV SCH (12:46)
[2025-03-29] MEDS: HYDROcodone/acetaminophen 10/325mg tab PO PRN (14:23)
[2025-03-29] MEDS ORDERED: amiodarone inj. 450 MG in dextrose 5%-water 241 ML IV SCH (16:19)
[2025-03-29 18:18] LABS: LEUKOCYTE ESTERASE ,URINE NEGATIVE (Neg); NITRITES, URINE NEGATIVE (Neg); OCCULT BLOOD,URINE NEGATIVE (Neg)
[2025-03-29 18:20] LABS: UA COLLECTION TYPE NON-SPECIFIED
[2025-03-29 18:25] LABS: MUCUS STRANDS MODERATE /LPF (Neg); SQUAMOUS EPITHELIAL CELL,UR FEW /LPF (FEW)
[2025-03-29 18:26] LABS: AMORPHOUS URATES 1+
[2025-03-29 18:36] LABS: URINE AMPHETAMINE SCREEN NEGATIVE (Neg); URINE BARBITUATE SCREEN NEGATIVE (Neg); URINE BENZODIAZEPINES SCREEN NEGATIVE (Neg); URINE CANNABINOID SCREEN POSITIVE (Neg); URINE COCAINE SCREEN NEGATIVE (Neg); URINE METHADONE SCREEN NEGATIVE (Neg); URINE OPIATE SCREEN POSITIVE (Neg); URINE PHENCYCLIDINE SCREEN NEGATIVE (Neg)
[2025-03-29] MEDS: methylPREDNISolone sod succ/PF 40mg inj. IV SCH (19:48)
[2025-03-30] VITALS (20 sets, daily range): BP systolic 119–136; BP diastolic 65–80; PULSE 58–71; RESP 10–20; TEMP 97.2–97.7; O2SAT 93–97
[2025-03-30] MEDS: amiodarone inj. 450 MG in dextrose 5%-water 241 ML IV SCH (02:22)
[2025-03-30 07:27] LABS: MEAN PLATELET VOLUME 7.6 FL (7.4-10.4); RED CELL DISTRIBUTION WIDTH 16.8 % (11.5-14.5)
[2025-03-30 07:57] LABS: CREATININE 0.59 MG/DL (0.60-1.10); TOTAL CARBON DIOXIDE 29.8 MMOL/L (24-32); eCRCL 139 ML/MIN; eGFR > 90 ML/MIN
[2025-03-30] MEDS: HYDROcodone/acetaminophen 5mg/325mg tablet PO PRN (08:19)
[2025-03-30] MEDS: pantoprazole 40mg Tablet.DR PO SCH (08:21)
[2025-03-30] MEDS: piperacillin/tazo 3.375gm/50ml 50 ML IV SCH (10:46)
[2025-03-30] MEDS: ondansetron/PF 4mg/2ml inj IV PRN (15:11)
--- NOTE | 2025-03-30 19:02 | PROGRESS NOTE- Residence ---
Progress Note - Resident Providers to CC Resident Creating Document: DEEDEE HICKMAN RES ~ Antibiotic Timeout Antibiotic Ordered?: Yes Subjective Patient was seen and examined on bedside, reports he is feeling better, but her stomach feels full and feeling nauseated. Objective Vital Signs Date Time Temp Pulse Resp B/P (MAP) Pulse Ox O2 Delivery O2 Flow Rate FiO2 03/30/25 17:45 66 20 High Flow [place] 6.0 03/30/25 17:43 95 03/30/25 17:40 48 03/30/25 15:00 97.4 135/76 (95) Result Diagram: 03/30/2543 03/30/25642 General: Awake and Alert, oriented no acute distress. G-tube in place HEENT: Conjunctiva pink, Sclera clear, Mucus Membranes dry Neck: Supple without masses and tenderness. Resp: no wheezing Heart: Regular rate and rhythm, HR normal, normal S1 and S2, no rub, murmur or gallop. Abdomen: Soft and non tender no organomegaly. Normal bowel sounds x4 quadrant normoactive. No guarding or rigidity. Extremities: Normal ROM, no swelling, nontender. No cyanosis,clubbing,no edema EMERGENCY PHYSICIAN: No gross motor or sensory abnormalities. Skin: Warm and Dry. Coagulation Studies Laboratory Tests Test 03/28/25 00:55 Prothrombin Time 13.5 SECONDS (9.0-12.0) H INR International Normalized Ratio 1.4 INR Activated Partial Thromboplast Time 31 SECONDS (22-32) Coagulation Comments Advance Care Planning Advanced Care plannin - 30 Minutes Plan Plan Acute hypoxemic respiratory failure secondary to aspiration pneumonia 2/2 mucus plugs Septic shock secondary to aspiration pneumonia Leukocytosis, Reactive thrombocytosis WBC count 25.2, temperature 100.1 at admission. Patient had initial blood pressure in 80s and respiratory rate in the 30s and pulse in 140s and 150s Patient was initially given Levophed and 2.5 L bolus of IV fluids. Levophed was later discontinued after blood pressures improved. Patient also received one dose of IV fentanyl 50 mcg, ketorolac 15 mg, lidocaine patch, one dose of ceftriaxone, metronidazole and azithromycin in the ED. Currently on IV vancomycin daily, Zosyn Q 8 hours. Currently on maintenance fluids NS at the rate of 100 mL/hour. Patient was initially on 30 L high-flow oxygen nasal cannula which is now weaned off to 15 L high-flow through nasal cannula. Patient received Solu-Medrol 125 mg IV once followed by Solu-Medrol 40 mg q.6 hours scheduled. UA is pending. Lactic acid and procalcitonin are within normal limits. Follow up with blood cultures and urine cultures, CRP. Chest x-ray showed Right basilar airspace disease concerning for pneumonia. CTA abdomen ruled out PE but showed Multifocal airspace disease involving all lobes, worse in the pibus-zoijims-wtee-left lobe. Extensive right lung aspiration is present. Trace right pleural effusion. Aspiration and superimposed infection are likely. Consider bronchoscopy. Consult manager systems in the a.m. for possible bronchoscopy to relieve mucus plugs. Continue aspiration precautions and incentive spirometry. Patient is currently on breathing treatments with albuterol q.2h p.r.n. and DuoNebs q.4 PRN. 03/30/25 WBC trending downward Vancomycin has been DC. Started patient on Zosyn, Continue Solu-Medrol 40 mg IV q.12h, albuterol q.2h p.r.n. and DuoNebs q.4 PRN. Heart rate normal Preliminary blood culture negative Patient maintaining oxygen satt on 6 L of oxygen 03/29- Patient's WBC count trending down Thrombocytosis resolved Patient still having tachycardia, blood pressure improving Patient currently requiring 25 L high-flow oxygen through nasal cannula Patient on maintenance fluids NS 50 cc/hour Patient on Solu-Medrol 40 mg, albuterol p.r.n. Currently on vancomycin, Zosyn discontinued, awaiting blood cultures. Atrial fibrillation with RVR Patient initially received 15 mg IV push of Cardizem that was later discontinued due to hypotension. Patient is currently on amiodarone drip. Heart rate is still in the high 110s despite being on amiodarone drip. Consult Cardiology in the a.m. patient is currently on Eliquis 5 mg b.i.d. for anticoagulation. Follow up with the echocardiogram 03/30/25 Patient is in sinus, in view of this stopped amiodarone drip. Continue Amiodarone 200 mg PO 03/29- Patient currently in AFib with RVR. Patient is still tachycardic Patient currently on amiodarone drip Patient on telemetry, we will continue to monitor him. Stage IV esophageal cancer CT shows Irregular masslike wall thickening of the mid to distal esophagus with large volume of intraluminal debris. Consider endoscopy. Bilateral hilar lymph nodes may be reactive or metastatic. 03/30/25 Patient need to follow up outpatient oncology 03/29- Patient has not seen any oncology doctor in over 3 months. To follow up with Oncology outpatient. Normocytic normochromic anemia Anemia of chronic disease secondary to malignancy Hemoglobin 11.9. Continue monitoring. Follow up with iron studies and supplement iron as needed. No signs of GI bleed 03/30/25 Hgb: 10.8 Hct: 33.7 Follow up with CBC Monitor sign of bleeding 03/29- Hemoglobin decreased to 11.1. Likely due to hemodilution Iron study showed decreased iron of 11, MCV 87.3, ferritin 356, TIBC We will continue to monitor his hemoglobin level. Moderate protein calorie malnutrition. Albumin 2.3. Consult nutrition for G-tube feeds Code Status: DNR DVT Prophylaxis: Lovenox Analgesia/Sedation: [place], morphine p.r.n. Gi Prophylaxis: Protonix Nutrition: G-tube feeds per nutrition recommendation DISPOSITION- patient is improving. , MAINTAINING OXYGEN SAT ON 6 L OF OXYGEN PREVIOUSLY WAS ON 25-30 L OF OXYGEN, STARTED ZOYSN , DCED VANCO Patient has esophageal cancer he need to follow up with oncologist Deedee Hickman PGY 1 IM Patient is seen and examined with resident at bedside continue with current treatment Date of Service: Mar 30, 2025 Billing Provider: NADINE KENT MD Common Visit Codes: [id number] INP/OBS CARE(HIGH) DEEDEE HICKMAN, RES Mar 30, 2025 19:02 NADINE KENT MD Mar 31, 2025 10:50
[2025-03-31] VITALS (14 sets, daily range): BP systolic 118–135; BP diastolic 71–79; PULSE 57–70; RESP 10–20; TEMP 96.9–98.6; O2SAT 93–98
[2025-03-31 07:16] LABS: MEAN PLATELET VOLUME 7.5 FL (7.4-10.4); RED CELL DISTRIBUTION WIDTH 16.9 % (11.5-14.5)
[2025-03-31 07:42] LABS: CREATININE 0.57 MG/DL (0.60-1.10); TOTAL CARBON DIOXIDE 30.8 MMOL/L (24-32); eCRCL 142 ML/MIN; eGFR > 90 ML/MIN
[2025-03-31] MEDS ORDERED: ENSURE HIGH PROTEIN PO SCH (13:00)
--- NOTE | 2025-03-31 14:34 | PROGRESS NOTE- Residence ---
Progress Note - Resident Providers to CC Resident Creating Document: ANA PATTERSON RES ~ Antibiotic Timeout Antibiotic Ordered?: Yes Subjective Patient was seen and examined on bedside, reports he is feeling better. No overnight events reported. Objective Vital Signs Date Time Temp Pulse Resp B/P (MAP) Pulse Ox O2 Delivery O2 Flow Rate FiO2 03/31/25 11:13 59 18 96 Nasal Cannula* 5 40 03/31/25 11:00 96.9 124/75 (91) Result Diagram: 03/31/25 0636 03/31/25 0636 General: Awake and Alert, oriented no acute distress. G-tube in place HEENT: Conjunctiva pink, Sclera clear, Mucus Membranes dry Neck: Supple without masses and tenderness. Resp: no wheezing Heart: irregular rate and rhythm, normal S1 and S2, no rub, murmur or gallop, muffled heart sounds. Abdomen: Soft and non tender no organomegaly. Normal bowel sounds x4 quadrant normoactive. No guarding or rigidity. Extremities: Normal ROM, no swelling, nontender. No cyanosis,clubbing,1+ edema. 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 Skin: Warm and Dry. Coagulation Studies Laboratory Tests Test 03/28/25 00:55 Prothrombin Time 13.5 SECONDS (9.0-12.0) H INR International Normalized Ratio 1.4 INR Activated Partial Thromboplast Time 31 SECONDS (22-32) Coagulation Comments Plan Plan Acute hypoxemic respiratory failure secondary to aspiration pneumonia 2/2 mucus plugs Septic shock secondary to aspiration pneumonia Leukocytosis, Reactive thrombocytosis WBC count 25.2, temperature 100.1 at admission. Patient had initial blood pressure in 80s and respiratory rate in the 30s and pulse in 140s and 150s Patient was initially given Levophed and 2.5 L bolus of IV fluids. Levophed was later discontinued after blood pressures improved. Patient also received one dose of IV fentanyl 50 mcg, ketorolac 15 mg, lidocaine patch, one dose of ceftriaxone, metronidazole and azithromycin in the ED. Currently on IV vancomycin daily, Zosyn Q 8 hours. Currently on maintenance fluids NS at the rate of 100 mL/hour. Patient was initially on 30 L high-flow oxygen nasal cannula which is now weaned off to 15 L high-flow through nasal cannula. Patient received Solu-Medrol 125 mg IV once followed by Solu-Medrol 40 mg q.6 hours scheduled. UA is pending. Lactic acid and procalcitonin are within normal limits. Follow up with blood cultures and urine cultures, CRP. Chest x-ray showed Right basilar airspace disease concerning for pneumonia. CTA abdomen ruled out PE but showed Multifocal airspace disease involving all lobes, worse in the mevll-oknikbo-yqwa-left lobe. Extensive right lung aspiration is present. Trace right pleural effusion. Aspiration and superimposed infection are likely. Consider bronchoscopy. Consult instructor correspondence school in the a.m. for possible bronchoscopy to relieve mucus plugs. Continue aspiration precautions and incentive spirometry. Patient is currently on breathing treatments with albuterol q.2h p.r.n. and DuoNebs q.4 PRN. 03/31/25- WBC trending down Patient currently on Zosyn Continuing Solu-Medrol 40 mg IV q.12h, albuterol, DuoNebs Patient currently requiring around 5 L of oxygen We will continue to monitor him 03/30/25 WBC trending downward Vancomycin has been DC. Started patient on Zosyn, Continue Solu-Medrol 40 mg IV q.12h, albuterol q.2h p.r.n. and DuoNebs q.4 PRN. Heart rate normal Preliminary blood culture negative Patient maintaining oxygen satt on 6 L of oxygen 03/29- Patient's WBC count trending down Thrombocytosis resolved Patient still having tachycardia, blood pressure improving Patient currently requiring 25 L high-flow oxygen through nasal cannula Patient on maintenance fluids NS 50 cc/hour Patient on Solu-Medrol 40 mg, albuterol p.r.n. Currently on vancomycin, Zosyn discontinued, awaiting blood cultures. Atrial fibrillation with RVR Patient initially received 15 mg IV push of Cardizem that was later discontinued due to hypotension. Patient is currently on amiodarone drip. Heart rate is still in the high 110s despite being on amiodarone drip. Consult Cardiology in the a.m. patient is currently on Eliquis 5 mg b.i.d. for anticoagulation. Follow up with the echocardiogram 03/31/25- Patient currently in sinus rhythm. Heart rate 60. Continue amiodarone 200 mg p.o. Continue Eliquis 5 mg 03/30/25 Patient is in sinus, in view of this stopped amiodarone drip. Continue Amiodarone 200 mg PO 03/29- Patient currently in AFib with RVR. Patient is still tachycardic Patient currently on amiodarone drip Patient on telemetry, we will continue to monitor him. Stage IV esophageal cancer CT shows Irregular masslike wall thickening of the mid to distal esophagus with large volume of intraluminal debris. Consider endoscopy. Bilateral hilar lymph nodes may be reactive or metastatic. 03/30/25 Patient need to follow up outpatient oncology 03/29- Patient has not seen any oncology doctor in over 3 months. To follow up with Oncology outpatient. Normocytic normochromic anemia Anemia of chronic disease secondary to malignancy Hemoglobin 11.9. Continue monitoring. Follow up with iron studies and supplement iron as needed. No signs of GI bleed 03/31/25- Hb- 10.7 We will continue to monitor. 03/30/25 Hgb: 10.8 Hct: 33.7 Follow up with CBC Monitor sign of bleeding 03/29- Hemoglobin decreased to 11.1. Likely due to hemodilution Iron study showed decreased iron of 11, MCV 87.3, ferritin 356, TIBC We will continue to monitor his hemoglobin level. Moderate protein calorie malnutrition. Albumin 2.3. Consult nutrition for G-tube feeds Code Status: DNR DVT Prophylaxis: Lovenox Analgesia/Sedation: [place], morphine p.r.n. Gi Prophylaxis: Protonix Nutrition: G-tube feeds per nutrition recommendation DISPOSITION- patient is improving. , MAINTAINING OXYGEN SAT ON 5 L OF OXYGEN PREVIOUSLY WAS ON 25-30 L OF OXYGEN, patient on zosyn. Patient has esophageal cancer he need to follow up with oncologist Ana Patterson PGY-1 Patient may benefit from a bronchoscopy as an outpatient we will refer to instructor correspondence school Date of Service: Mar 31, 2025 Billing Provider: NADINE KENT MD Common Visit Codes: [id number] INP/OBS CARE(HIGH) ANA PATTERSON, RES Mar 31, 2025 14:34 NADINE KENT MD Apr 01, 2025 10:29
[2025-03-31] MEDS ORDERED: docusate sodium 100mg/10ml UD cup GT PRN (20:15)
[2025-04-01 01:00] VITALS: BP 134/72; PULSE 55; RESP 14; TEMP 96.8; O2SAT 96
[2025-04-01 06:00] VITALS: BP 120/69; PULSE 62; RESP 16; TEMP 97.3; O2SAT 96; O2SAT 97
[2025-04-01 06:38] LABS: MEAN PLATELET VOLUME 7.6 FL (7.4-10.4); RED CELL DISTRIBUTION WIDTH 16.5 % (11.5-14.5)
[2025-04-01 07:05] LABS: CREATININE 0.69 MG/DL (0.60-1.10); TOTAL CARBON DIOXIDE 34.5 MMOL/L (24-32); eCRCL 118 ML/MIN; eGFR > 90 ML/MIN
[2025-04-01 08:00] VITALS: RESP 18; O2SAT 96
[2025-04-01 11:00] VITALS: BP 118/71; PULSE 56; RESP 21; TEMP 97.4; O2SAT 95
[2025-04-01] MEDS ORDERED: LACT1CAP26 PO (15:46)
[2025-04-01] MEDS ORDERED: METR-159 PO (15:46)
[2025-04-01] MEDS ORDERED: LEVO750T68 PO (15:46)
--- NOTE | 2025-04-01 16:26 | DISCHARGE SUMMARY-Residence ---
Discharge Summary Providers to CC Resident Creating Document: ANA SMALLWOOD RES ~ Discharge Summary Admission Diagnosis: Sepsis, pneumonia, esophageal cancer Hospital Course DATE OF ADMISSION: 03/28/25 DATE OF DISCHARGE: 04/01/25 Imaging- Chest x-ray- Right basilar airspace disease concerning for pneumonia. Chest thorax CTA- No pulmonary embolism to the level of the mid subsegmental arteries. 2. Multifocal airspace disease involving all lobes, worse in the vrnnf-jjecfut-rbeh-left lobe. Extensive right lung aspiration is present. Trace right pleural effusion. Aspiration and superimposed infection are likely. Consider bronchoscopy. 3. Irregular masslike wall thickening of the mid to distal esophagus with large volume of intraluminal debris. Consider endoscopy. 4. Bilateral hilar lymph nodes may be reactive or metastatic, correlate with procedure results. Discharge Diagnosis\Comment: Acute hypoxemic respiratory failure secondary to aspiration pneumonia 2/2 mucus plugs Septic shock secondary to aspiration pneumonia Leukocytosis, Reactive thrombocytosis Atrial fibrillation with RVR Stage IV esophageal cancer Normocytic normochromic anemia Anemia of chronic disease secondary to malignancy Moderate protein calorie malnutrition. Operations\Procedures: None Consultants: None Complications: None Condition on DC: Stable New Medications: Lactobacillus Rhamnosus (Culturelle) 10 Billion Cell Capsule 1 CAP PO BID for 30 Days, #60 CAP 0 Refills Levofloxacin (Levofloxacin) 750 Mg Tablet 750 MG PO DAILY for 7 Days, #7 TAB Metronidazole* (Flagyl*) 500 Mg Tablet 1 TAB PO Q12H for 7 Days, #14 TAB Continued Medications: Amiodarone Hcl (Cordarone) 200 Mg Tablet 200 MG GT DAILY, TAB Apixaban (Eliquis) 5 Mg Tablet 1 TAB GT BID for 30 Days, #60 TAB 0 Refills Cetirizine HCl (Zyrtec) 10 Mg Tablet 1 TAB GT DAILY for allergy symptoms for 30 Days, #30 TAB 0 Refills Escitalopram Oxalate (Lexapro) 20 Mg Tablet 1 TAB GT DAILY for 30 Days, #30 TAB Metoprolol Tartrate (Metoprolol Tartrate) 25 Mg Tablet 1 TAB GT BID for 30 Days, #60 TAB 0 Refills ONDANSETRON ODT 4mg tablet (Ondansetron Odt) 4 Mg Tab.rapdis 1 TAB GT Q8H PRN for nausea/vomiting for 4 Days, #16 TAB 0 Refills Oxycodone Hcl IR* (Oxycodone IR*) 5 Mg Tablet 1 TAB GT Q12H PRN PRN for pain for 5 Days, #10 TAB Pantoprazole Sodium (PROTONIX tablet) 40 Mg Tablet.dr 1 TAB GT BID for 30 Days, #30 TAB 0 Refills Sennosides/Docusate Sodium (Senna Plus 8.6-50 mg Tablet) 8.6 Mg-50 Mg Tablet 1 TAB GT BID for 20 Days, #20 TAB 0 Refills Discontinued Medications: Losartan Potassium (Losartan Potassium) 50 Mg Tablet 25 MG GT DAILY Discharge Summary: This is a 59-year-old male with a history of stage IV esophageal cancer s/p G- tube placement, hypertension, atrial fibrillation, obstructive sleep apnea was brought to the ER by EMS with a chief complaint of cough with hemoptysis since 4:00 p.m. yesterday. Patient states that his cough that started spontaneously and lasted for 1 hour after which he had two mouthfulls of bright red blood and shortness of breath. Patient endorses that he can not swallow anything due to the esophageal cancer and has a complete obstruction in the esophagus. He usually takes his feeds through G-tube. The patient endorses having thick mucus every morning in his throat and states that he might have aspirated some of the mucus multiple times. Patient also wears a BiPAP at night for obstructive sleep apnea management and has copious mucus secretions every morning when he wakes up. He also states that his esophageal cancer is compressing his right atrium that causes persistent AFib despite being on medications. He takes Eliquis 5 mg b.i.d. for anticoagulation. He does not use any oxygen at home. He takes about four cartons of G-tube feeds every day. Each carton is 250 mL. He also flushes 100 mL of free water every 4 hours through the G-tube but feels almost dehydrated all the time. He drinks small sips of water which he sometimes aspirates. Patient follows [facility] and finished eight cycles of chemotherapy and 28 cycles of concomitant radiation over a period of two months. He was under remission for three months after which the cancer recurred. Britni is his PA and Dr. Emma Ruiz is his vessel scrapper. Patient was offered palliative esophageal resection surgery but he declined it. Patient is in the process of pursuing hospice and endorses that hospice is ready for him to whenever he wants to opt for hospice. Patient has a advance directive which states DNR. Patient has a PET scan coming up in two weeks. His course during the hospital stay- Patient was initially on 25 L of high-flow oxygen. We started the patient on steroids, vancomycin and Zosyn for possible pneumonia. Later vancomycin was discontinued and the patient was being treated only with Zosyn and IV fluids. His oxygenation requirement improved significantly over the course of his hospital stay, coming down to 5-6 L and then finally he was saturating above 88% on 1 L of oxygen. Patient also presented with atrial fibrillation with RVR for which we started him on amiodarone drip and Eliquis and was on telemetry monitoring. Later he came back to sinus for which amiodarone drip was stopped and we continued on amiodarone 200 mg p.o.. Patient was asked to follow-up with oncology outpatient for his underlying esophageal cancer. And also advised him to get a bronchoscopy done for his concerning CTA chest results. We discharge the patient on levofloxacin and metronidazole. Patient was stable at the time of discharge. Vital Signs Date Time Temp Pulse Resp B/P (MAP) Pulse Ox O2 Delivery O2 Flow Rate FiO2 04/01/25 11:00 97.4 56 21 118/71 (87) 95 Nasal Cannula 5.0 03/31/25 20:25 40 Laboratory Tests Test 03/30/25 19:47 03/31/25 00:58 03/31/25 06:00 03/31/25 06:36 Glucometer 166 mg/dl 131 mg/dl White Blood Count 11.8 X10'3 Red Blood Count 3.82 X10'6 Hemoglobin 10.7 g/dl Hematocrit 33.7 % Mean Corpuscular Volume 88.3 FL Mean Corpuscular Hemoglobin 28.1 PG Mean Corpuscular Hemoglobin Concent 31.8 g/dL Red Cell Distribution Width 16.9 % Platelet Count 410 X10'3 Mean Platelet Volume 7.5 FL Neutrophils (%) (Auto) 95.4 % Lymphocytes (%) (Auto) 2.8 % Monocytes (%) (Auto) 1.8 % Eosinophils (%) (Auto) 0 % Basophils (%) (Auto) 0 % Neutrophils # (Auto) 11.2 X10'3 Lymphocytes # (Auto) 0.3 X10'3 Monocytes # (Auto) 0.2 X10'3 Eosinophils # (Auto) 0.0 X10'3 Basophils # (Auto) 0.0 X10'3 CBC Comment Sodium Level 142 MMOL/L Potassium Level 3.9 MMOL/L Chloride Level 110 MMOL/L Carbon Dioxide Level 30.8 MMOL/L Anion Gap 1 Blood Urea Nitrogen 23 MG/DL Creatinine 0.57 MG/DL Estimated GFR/1.73 m2 > 90 ML/MIN BUN/Creatinine Ratio 40.4 Glucose Level 165 MG/DL Calcium Level 8.3 MG/DL Total Bilirubin 0.4 MG/DL Aspartate Amino Transf (AST/SGOT) 59 U/L Alanine Aminotransferase (ALT/SGPT) 98 U/L Alkaline Phosphatase 90 IU/L Total Protein 6.4 G/DL Albumin 1.9 G/DL Globulin 4.5 G/DL Albumin/Globulin Ratio 0.4 Chemistry Comments Test 03/31/25 07:50 03/31/25 14:31 03/31/25 21:43 04/01/25 01:20 Glucometer 155 mg/dl 147 mg/dl 141 mg/dl 142 mg/dl Test 04/01/25 06:00 04/01/25 14:22 White Blood Count 10.6 X10'3 Red Blood Count 3.81 X10'6 Hemoglobin 10.8 g/dl Hematocrit 33.5 % Mean Corpuscular Volume 87.9 FL Mean Corpuscular Hemoglobin 28.4 PG Mean Corpuscular Hemoglobin Concent 32.3 g/dL Red Cell Distribution Width 16.5 % Platelet Count 380 X10'3 Mean Platelet Volume 7.6 FL Neutrophils (%) (Auto) 93.6 % Lymphocytes (%) (Auto) 4.1 % Monocytes (%) (Auto) 1.9 % Eosinophils (%) (Auto) 0.1 % Basophils (%) (Auto) 0.3 % Neutrophils # (Auto) 9.9 X10'3 Lymphocytes # (Auto) 0.4 X10'3 Monocytes # (Auto) 0.2 X10'3 Eosinophils # (Auto) 0.0 X10'3 Basophils # (Auto) 0.0 X10'3 CBC Comment Sodium Level 139 MMOL/L Potassium Level 5.0 MMOL/L Chloride Level 105 MMOL/L Carbon Dioxide Level 34.5 MMOL/L Anion Gap -1 Blood Urea Nitrogen 21 MG/DL Creatinine 0.69 MG/DL Estimated GFR/1.73 m2 > 90 ML/MIN BUN/Creatinine Ratio 30.4 Glucose Level 135 MG/DL Calcium Level 8.2 MG/DL Total Bilirubin 0.4 MG/DL Aspartate Amino Transf (AST/SGOT) 48 U/L Alanine Aminotransferase (ALT/SGPT) 107 U/L Alkaline Phosphatase 81 IU/L Total Protein 5.9 G/DL Albumin 1.8 G/DL Globulin 4.1 G/DL Albumin/Globulin Ratio 0.4 Chemistry Comments Glucometer 145 mg/dl Physical examination at the time of discharge- General: Awake and Alert, oriented no acute distress. G-tube in place HEENT: Conjunctiva pink, Sclera clear, Mucus Membranes dry Neck: Supple without masses and tenderness. Resp: no wheezing Heart: irregular rate and rhythm, normal S1 and S2, no rub, murmur or gallop, muffled heart sounds. Abdomen: Soft and non tender no organomegaly. Normal bowel sounds x4 quadrant normoactive. No guarding or rigidity. Extremities: Normal ROM, no swelling, nontender. No cyanosis,clubbing,1+ edema. WEB OPERATIONS LEAD: No gross motor or sensory abnormalities. Skin: Warm and Dry. Discharge medications- New Medications: Lactobacillus Rhamnosus (Culturelle) 10 Billion Cell Capsule Levofloxacin 750 Mg Tablet Metronidazole* (Flagyl*) 500 Mg Tablet Continued Medications: Amiodarone Hcl (Cordarone) 200 Mg Tablet Apixaban (Eliquis) 5 Mg Tablet Cetirizine HCl (Zyrtec) 10 Mg Tablet Escitalopram Oxalate (Lexapro) 20 Mg Tablet Metoprolol Tartrate 25 Mg Tablet ONDANSETRON ODT 4mg tablet (Ondansetron Odt) 4 Mg Tab.rapdis Oxycodone Hcl IR* (Oxycodone IR*) 5 Mg Tablet Pantoprazole Sodium (PROTONIX tablet) 40 Mg Tablet. Sennosides/Docusate Sodium (Senna Plus 8.6-50 mg Tablet) 8.6 Mg-50 Mg Tablet Discontinued Medications: Losartan Potassium 50 Mg Tablet Instructions by the doctor at the time of discharge- Follow-up with PCP in 1 week. Get a referral for outpatient bronchoscopy from your PCP as your CTA chest shows Multifocal airspace disease involving all lobes, worse in the alczr-oaqhuyn-jjcb-left lobe. Extensive right lung aspiration is present. Trace right pleural effusion. Aspiration and superimposed infection are likely. Please follow-up with the Oncology outpatient for your underlying esophageal carcinoma. Please be compliant with all the medications given to you. In case you experience any shortness of breath, coughing up of blood, please call 911 or go to the nearest ED immediately. *Problems/Diagnosis: (1) Pneumonia Status: Acute (2) Atrial fibrillation with RVR Status: Acute Total Time Spent on D/C: > 30 Minutes Date of Service: Apr 01, 2025 Billing Provider: NADINE KENT MD, PREETHI, RES Apr 01, 2025 16:26
== END 2025-04-01 16:02 | disposition home or self-care (01) | DRG 871 ==
LOC: ER 17:49 → ED HOLD 03-28 00:46 → PCU 3S 03-28 04:08
PROVIDERS: ADMIT Internal Medicine Pulmonary Disease; ATTEND Internal Medicine
PROC: B32T1ZZ Computerized Tomography (CT Scan) of Left Pulmonary Artery using Low Osmolar Contrast (ICD-10-PCS; principal; 2025-03-27)
PROC: B3201ZZ Computerized Tomography (CT Scan) of Thoracic Aorta using Low Osmolar Contrast (ICD-10-PCS; 2025-03-27)
PROC: B32S1ZZ Computerized Tomography (CT Scan) of Right Pulmonary Artery using Low Osmolar Contrast (ICD-10-PCS; 2025-03-27)
PROC: 5A0945A Assistance with Respiratory Ventilation, 24-96 Consecutive Hours, High Flow/Velocity Cannula (ICD-10-PCS; 2025-03-28)
PROC: 5A0935A Assistance with Respiratory Ventilation, Less than 24 Consecutive Hours, High Flow/Velocity Cannula (ICD-10-PCS; 2025-03-30)
PROC: 5A0935A Assistance with Respiratory Ventilation, Less than 24 Consecutive Hours, High Flow/Velocity Cannula (ICD-10-PCS; 2025-03-31)
DX: A41.9 Sepsis, unspecified organism (principal); J18.9 Pneumonia, unspecified organism; R65.21 Severe sepsis with septic shock; J69.0 Pneumonitis due to inhalation of food and vomit; J96.01 Acute respiratory failure with hypoxia; C15.9 Malignant neoplasm of esophagus, unspecified; E44.0 Moderate protein-calorie malnutrition; Z66 Do not resuscitate; Z20.822 Contact with and (suspected) exposure to COVID-19; G47.33 Obstructive sleep apnea (adult) (pediatric); F17.210 Nicotine dependence, cigarettes, uncomplicated; D75.838 Other thrombocytosis; I10 Essential (primary) hypertension; I48.91 Unspecified atrial fibrillation; D63.0 Anemia in neoplastic disease; Z68.30 Body mass index [BMI] 30.0-30.9, adult; Z79.899 Other long term (current) drug therapy; Z90.49 Acquired absence of other specified parts of digestive tract
CPT/HCPCS: 36415; 36600; 71045; 71275; 80048; 80053; 80202; 80305; 81001; 82728; 82803; 82948; 83540; 83550; 83605; 83735; 83880; 84132; 84134; 84145; 84466; 85007; 85018; 85025; 85610; 85651; 85730; 86140; 86870; 86885; 86900; 86901; 86902; 86905; 87040; 87081; 87324; 87449; 87804; 87811; 93005; 94640; 94760; 96365; 97161; 97530; 99291; A4615; A6258; A6449; A7015; G0378; J0131; J0282; J0456; J0696; J1171; J1650; J1885; J2405; J2470; J2543; J2919; J3010; J3373; J3490; J7030; J7040; J7060; Q9967